=== PATIENT | male | born 1995 | race Caucasian/White ===

== ENCOUNTER 2020-08-27 00:23 | Emergency (ER) | payer BC, SELFPAY ==
[2020-08-27 00:24] VITALS: BP 139/76; PULSE 81; RESP 18; TEMP 36.6; O2SAT 100; BMI 23.9
[2020-08-27 00:45] LABS: Absolute Neutrophil Count 4.9 X10^3/uL (2.0-7.7); Basophil# 0.03 X10^3/uL; Basophil% 0.3 % (0-1); Eosinophil# 0.63 X10^3/uL; Eosinophils% 6.1 % (0-5); Hematocrit 42.2 % (40-54); Hemoglobin 14.1 g/dL (13.0-16.5); Lymphocyte % 39.8 % (19-41); Mean Corp Hgb Conc 33.4 g/dL (32-36); Mean Corpuscular Hgb 30.3 pg (27.0-32.0); Mean Corpuscular Volume 90.6 fL (80-94); Mean Platelet Vol. 9.3 fl (6.2-12.0); Monocyte# 0.67 X10^3/uL; Monocyte% 6.5 % (0-10); NRBC Flagged by Analyzer 0 % (0-5); Neutrophil # 4.85 X10^3/uL (2.7-7.7); Neutrophil % 47.1 % (47-70); Platelet Count 223 K/mm3 (150-450); RBC Distribution Width CV 12.9 % (11.6-14.6); RBC Distribution Width SD 42.5 fl (35.1-43.9); Red Blood Count 4.66 M/mm3 (4.6-6.2); White Blood Count 10.3 K/mm3 (4.4-11.0)
[2020-08-27 00:48] LABS: Mucous, Urine 0 SEEN /hpf (<or=2+); Squamous Epithelial Cells - UA 0 SEEN /hpf (0-5)
[2020-08-27 01:02] LABS: Anion Gap 5 (5-15); BUN 14 mg/dL (7-18); BUN/Creat Ratio 10.3 RATIO (10-20); Calcium,Total 8.9 mg/dL (8.5-10.1); Chloride 108 mmol/L (98-107); Creatinine, Serum 1.36 mg/dL (0.70-1.30); EST Glomerular Filtration Rate 67 mL/min (>60); Est Glom Filt Rate - Afr Amer 82 mL/min (>60); Estimated Creatinine Clearance 88.43 ml/min; Glucose 113 mg/dL (74-106); Potassium 3.9 mmol/L (3.5-5.1); Sodium Level 143 mmol/L (136-145)
[2020-08-27 01:16] LABS: Color, Urine Red (Yellow); Glucose, Dipstick Normal (Normal); Ketone-Dipstick 5 mg/dl (Negative); Leukocyte Esterase-Dipstick 25 /ul (Negative); Nitrite-Dipstick Negative (Negative); Occult Blood-Urine 250 /ul (Negative); Protein-Dipstick 100 mg/dl (Negative); Specific Gravity, Urine 1.025 (1.002-1.030); Urine Bilirubin Dipstick Negative (Negative); Urine Clarity Cloudy (Clear); Urine Urobilinogen Normal (Normal)
--- NOTE | 2020-08-27 01:18 | CT_ITS ---
STUDY: CT ABDOMEN AND PELVIS WITHOUT CONTRAST REASON FOR EXAM: Male, 24 years old. Left flank pain RADIATION DOSAGE (If Supplied By Facility): CTDIvol = ( 6.31 ) mGy, DLP = ( 309.19 ) mGycm TECHNIQUE: Transaxial images were obtained from the dome of the diaphragm to the symphysis pubis without oral contrast, and without intravenous contrast. Sagittal and coronal images were reconstructed. Individualized dose optimization techniques were used for this CT. COMPARISON: None. FINDINGS: The visualized lung bases are unremarkable. The visualized portions of the heart are within normal limits. Normal liver. Normal gallbladder and extrahepatic biliary system. Normal spleen. Normal pancreas. Normal bilateral adrenal glands. Punctate stones within the right kidney largest measuring 1.6 mm. Otherwise normal right kidney. Mild left hydronephrosis. Tiny punctate stones largest measuring 1.2 mm within the left kidney. There is mild left hydronephrosis and hydroureter due to a distal left ureteral stone measuring 3 mm. Normal visualized stomach. Normal small intestine. Normal colon. The appendix is visualized and appears normal. Normal abdominal aorta. Normal inferior vena cava. Normal retroperitoneum. Normal urinary bladder. Normal abdominal wall. Normal osseous structures. CT/Abdomen/Pelvis without Cont IMPRESSION: Mild left hydronephrosis due to a 3 mm stone in the distal left ureter, just above the UV junction. Nonspecific bilateral tiny punctate intrarenal stones as described. Electronically Signed: Leann Atkinson MD at 2:20 EDT , Service support ,
[2020-08-27 01:30] LABS: Bacteria 1+ /hpf (None Seen); Red Blood Cells-Urine > 100 SEEN /hpf (0-5); White Blood Cells 10-25 SEEN /hpf (0-5)
[2020-08-27] MEDS: 0.9% Normal Saline 1,000 ML 1000 ML IV (01:32)
[2020-08-27] MEDS: Ketorolac 30 MG/ML Syringe IV (01:32)
--- NOTE | 2020-08-27 03:06 | EDS_ITS ---
HPI HPI - GI History of Present Illness Chief Complaint: Abd Pain Informant: patient Abdominal Pain/Flank Pain Onset: Today Context: Gradual Onset Timing: Continuous Quality: Sharp Location: LLQ and Left Flank Worsened by: Movement Relieved by: Remaining Still Nausea/Vomiting/Emesis GI Symptom: Negative for Nausea and Vomiting Diarrhea/Melena/Hematochezia GI Symptom: Negative for Diarrhea, Melena and Hematochezia Associated Symptoms Associated Symptoms: Positive for Dysuria and Hematuria Narrative Narrative: Patient presents with left-sided abdominal pain that began tonight. Patient states the pain has gradually gotten worse throughout the day. Patient describes the pain as sharp. Patient states the pain is over the left flank and left lower quadrant. Patient admits to some mild dysuria and gross hematuria. Patient denies any nausea or vomiting. Patient denies any diarrhea, melena, or hematochezia. Patient states the pain is worse with movement and better when he is still. [facility] Medical History ADHD Home Medications dextroamphetamine-amphetamine [Adderall 20 mg Tablet] 20 mg PO DAILY 11/19/16 [History Last Taken Unknown] hydrocodone-acetaminophen 1 tab PO Q6H PRN PRN 3 Days #10 tablet 08/27/20 [Rx Last Taken Unknown] Allergy/AdvReac Type Severity Reaction Status Date / Time No Known Allergies Allergy Verified 08/27/20 00:26 Surgical History (Updated 08/27/20 @ 03:[address] Daniel Hernandez DO) S/P LASIK surgery of both eyes Social History Smoking Status: Current every day smoker tobacco type: cigarettes ROS ROS ED Constitutional Constitutional ED: Denies chills or fever(s) Eyes Eyes: Denies blurry vision or change in vision ENT ENT ED: Denies rhinorrhea or sore throat Cardiovascular Cardiovascular: Denies chest pain or palpitations Respiratory/Chest Respiratory/Chest: Denies cough or dyspnea Gastrointestinal Gastrointestinal: Reports abdominal pain; Denies nausea or vomiting Genitourinary Genitourinary ED: Reports dysuria and hematuria Musculoskeletal Musculoskeletal: Denies back pain or neck pain Integumentary Denies abscess or rash Neurologic Neurologic: Denies headache(s) or weakness Allergic/Immunologic Allergic/Immunologic ED: Denies mouth swelling or urticaria EXAM Physical Exam Const Vital Signs: 08/27/20 00:24 08/27/20 03:18 Temperature 97.8 F Temperature Source Oral Pulse Rate 81 Respiratory Rate 18 16 Blood Pressure 139/76 H Blood Pressure Mean 97 Pulse Ox 100 Oxygen Delivery Method Room Air Positive well nourished and well developed General Appearance ED: well developed HEENT normocephalic and atraumatic Neck supple and no JVD Resp normal respiratory effort and clear to auscultation bilaterally Cardio regular rate, regular rhythm and no murmurs Rate: regular rate Rhythm: regular rhythm GI non-tender and non-distended Auscultation: normoactive bowel sounds Palpation: soft Back/Spine no CVA tenderness Extremity normal to inspection General Extremety ED: Negative for edema or tenderness General Extremity: Negative for edema Neuro oriented x3, CN's II-XII intact bilaterally and no sensory deficits noted Sensorium / Orientation: alert Motor Exam: strength 5/5 throughout Skin Rashes: no rashes MDM MDM MDM Narrative Medical decision making narrative: Patient was given IV fluids and Toradol initially. CBC and basic metabolic profile were obtained and were essentially within normal limits. Urinalysis showed red cloudy urine with greater than [address] scan of the abdomen pelvis was obtained. There is mild left hydronephrosis due to a 3 mm calculus in the left distal ureter just above the UV junction. This was interpreted by the radiologist and reviewed by myself. Patient was feeling better on reevaluation. Patient was given a prescription for a short course of Wagner. Patient was instructed drink plenty of fluids. Patient was given a repeat dose of morphine prior to discharge. Patient was given referral to urology for follow-up care. Patient was also instructed to follow-up with his primary care physician in 5 to 7 days. Patient and family understood and were agreeable with the plan. All questions were answered. Lab Data Attestation: I reviewed the patient's lab results. Labs: Laboratory Results - last 24 hr 08/27/20 08/27/20 08/27/20 00:35 00:35 00:45 WBC 10.3 RBC 4.66 Hgb 14.1 Hct 42.2 MCV 90.6 MCH 30.3 MCHC 33.4 RDW Std Deviation 42.5 RDW Coeff of Brea 12.9 Plt Count 223 MPV 9.3 Immature Gran % (Auto) 0.200 Neut % (Auto) 47.1 Lymph % (Auto) 39.8 Barron % (Auto) 6.5 Eos % (Auto) 6.1 H Baso % (Auto) 0.3 Absolute Neuts (auto) 4.9 Absolute Lymphs (auto) 4.10 Nucleated RBC % 0 Sodium 143 Potassium 3.9 Chloride 108 H Carbon Dioxide 30.0 Anion Gap 5 BUN 14 Creatinine 1.36 H Estim Creat Clear Calc 88.43 Est GFR (MDRD) Af Amer 82 Est GFR (MDRD) Non-Af 67 BUN/Creatinine Ratio 10.3 Glucose 113 H Calcium 8.9 Urine Color Red Urine Clarity Cloudy Urine pH 6.0 Ur Specific [place] 1.025 Urine Protein 100 H Urine Glucose (UA) Normal Urine Ketones 5 H Urine Occult Blood 250 H Urine Nitrite Negative Urine Bilirubin Negative Urine Urobilinogen Normal Ur Leukocyte Esterase 25 H Urine RBC > 100 SEEN Urine WBC 10-25 SEEN Ur Squamous Epith Cells 0 SEEN Urine Bacteria 1+ Urine Mucus 0 SEEN Radiography Diagnostic Testing: Radiology Impression Abdomen/Pelvis CT 08/27/20 01:18 IMPRESSION: Mild left hydronephrosis due to a 3 mm stone in the distal left ureter, just above the UV junction. Nonspecific bilateral tiny punctate intrarenal stones as described. Electronically Signed: Leann Atkinson MD at 2:20 EDT , Service support , Discharge Plan Triage Chief Complaint: Abd Pain ED Provider: Daniel Hernandez Dx/Rx/DC Orders Clinical Impression: Calculus of distal left ureter Instructions: ED Kidney Stone w/ Colic Prescriptions: New hydrocodone-acetaminophen [hydrocodone-acetaminophen] 1 TABLET tablet 1 tab PO Q6H PRN PRN (Reason: Pain) 3 Days Qty: 10 RF: 0 No Action dextroamphetamine-amphetamine [Adderall] 20 MG tablet 20 mg PO DAILY RF: 0 Primary Care Provider: Bill Leon Chi Referrals: Misha Owens MD [STAFF PHYSICIAN] - 3-5 Days Bill Leon Chi, MD [Primary Care Provider] - 3-5 Days Disposition Disposition: Home, self care Discharge Date/Time: 08/27/20 03:19
[2020-08-27] MEDS: Morphine 4 MG/ML Syringe IV (03:17)
[2020-08-27 03:18] VITALS: RESP 16
== END 2020-08-27 03:19 | disposition home or self-care (01) ==
PROVIDERS: Emergency Provider Emergency Medicine; PCP Family Medicine Geriatric Medicine
DX: N13.2 Hydronephrosis with renal and ureteral calculous obstruction (principal); F90.9 Attention-deficit hyperactivity disorder, unspecified type; F17.210 Nicotine dependence, cigarettes, uncomplicated; Z79.899 Other long term (current) drug therapy
CPT/HCPCS: 74176; 80048; 81001; 85025; 96361; 96374; 96375; 99283; J7030; A4216

== ENCOUNTER 2022-04-14 20:36 | Emergency (ER) | payer BC, SELFPAY ==
[2022-04-14 20:37] VITALS: BP 133/82; PULSE 100; RESP 16; TEMP 37.2; O2SAT 98; BMI 26.6
[2022-04-14] MEDS: Diphth,Pertuss(Acell),Tet Vac 0.5 ML Vial IM (22:13)
--- NOTE | 2022-04-14 23:33 | EX.ED.UPPERE ---
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 Patient states he is able to control the bleeding. Patient denies any bony tenderness. He has not had any loss of function or loss of sensation. Tetanus immunization is unknown. Patient is right-hand dominant. [facility] Medical History ADHD Home Medications dextroamphetamine-amphetamine 20 mg tablet (Adderall) 20 mg PO BID 11/19/16 [History Last Taken Unknown] Allergy/AdvReac Type Severity Reaction Status Date / Time No Known Allergies Allergy Verified 08/27/20 00:26 Surgical History S/P LASIK surgery of both eyes Social History Smoking Status: Current every day smoker tobacco type: cigarettes ROS ROS ED Constitutional Constitutional ED: Denies chills or fever(s) Eyes Eyes: Denies change in vision or diplopia ENT ENT ED: Denies rhinorrhea or sore throat Cardiovascular Cardiovascular: Denies chest pain or palpitations Respiratory/Chest Respiratory/Chest: Denies cough or dyspnea Gastrointestinal Gastrointestinal: Denies abdominal pain or constipation Genitourinary Genitourinary ED: Denies dysuria or hematuria Musculoskeletal Musculoskeletal: Denies back pain or myalgias Integumentary Reports other Details: Laceration left wrist Neurologic Neurologic: Denies headache(s), paresthesias or weakness EXAM Physical Exam Const Vital Signs: 04/14/22 20:37 04/14/22 20:37 Temperature 98.9 F Temperature Source Oral Pulse Rate 100 Respiratory Rate 16 Blood Pressure 133/82 H Blood Pressure Mean 99 Pulse Ox 98 Oxygen Delivery Method Room Air Positive well nourished General Appearance ED: NAD HEENT Reports moist mucous membranes normocephalic and atraumatic Eyes PERRL and EOMs intact bilaterally Resp normal respiratory effort Cardio regular rate and regular rhythm Extremity Extremity Narrative: 4 cm laceration to the left volar wrist distally. This is ellipsoid in the horizontal lie. No active bleeding. No ligamentous injury or tendon. Bleeding well controlled. Left hand neurovascular intact prescription for all 5 fingers. Neuro oriented x3 and CN's II-XII intact bilaterally Sensorium / Orientation: alert Psych mental status grossly normal MDM MDM MDM Narrative Medical decision making narrative: Patient seen and evaluated for laceration to the left wrist. This is about 4 cm. Bleeding is well controlled. No major vascular injuries noted. No evidence of any ligament, tendon, bony involvement. I believe the patient needs x-rays. Tetanus was updated today. Patient's laceration was sutured with 4 simple interrupted 4-0 Ethilon sutures. Please see procedure note. Patient tolerated this well. His wound was dressed and he was placed in a wrist splint due to the location on the wrist that he does not inadvertently extend his wrist or flex his wrist and and tear his sutures. Patient counseled on wound care and follow-up. Return precautions discussed. Patient discharged home in stable condition. Impression: 1. 4.0 cm left wrist laceration 2. Tetanus immunization Lab Data Attestation: I reviewed the patient's lab results. Procedures Lacerations left wrist: Length: 1.57 in Depth: Skin Shape: Ellipsoid Prep: Sterile Conditions and Chlorhexadine Laceration repair: Irrigated and Lidocaine Irrigated (ml): 250 Number of Sutures/Grandy: 4 Suture Information: Ethilon, Simple and 4-0 Discharge Plan Triage Chief Complaint: Laceration ED Provider: Deepak Gamez Dx/Rx/DC Orders Instructions: ED Laceration Extremity Prescriptions: No Action dextroamphetamine-amphetamine [Adderall] 20 MG tablet 20 mg PO BID Primary Care Provider: Bill Leon Chi Referrals: Bill Leon Chi, MD [Primary Care Provider] - Disposition Disposition: Home, Self Care
== END 2022-04-14 23:43 | disposition home or self-care (01) ==
PROVIDERS: Emergency Provider Student in an Organized Health Care Education/Training Program; PCP Family Medicine Geriatric Medicine; Visit Provider Student in an Organized Health Care Education/Training Program
DX: S61.512A Laceration without foreign body of left wrist, initial encounter (principal); F17.210 Nicotine dependence, cigarettes, uncomplicated; Z23 Encounter for immunization; W26.8XXA Contact with other sharp object(s), not elsewhere classified, initial encounter
CPT/HCPCS: 12002; 90471; 90715; 99282

== ENCOUNTER → 2023-04-02 | Outpatient (CLI) | payer BC, SELFPAY ==
--- OUTSIDE RECORDS SUMMARY | 2023-04-02 15:57 | XMS RPT_ITS | CCD ---
Author Name Unknown Address [address] [place] [address] Organization [facility] Care Team Providers Care Director Of Provider Relations Name Role Phone MANUELA STEVENSON Unavailable Unavailable JUANY CARLISLE Unavailable Sonal Carlisle MD, Juany Carrizales Primary Care Provider ALIYAH AQUINO Referring Unavailab JUANY Aiken Primary Care Unavailable Juany Carlisle MD Primary Care Provider [phone] BEAU NORWOOD Referring Unavailable JUANY CARLISLE Primary Care Unavailable JUANY CARLISLE Primary Care Unavailable ALIYAH AQUINO Attending UnavailBEAU Bose Referring Unavailable BEAU NORWOOD Referring Unavailable JUANY CARLISLE Primary Care Unavailable JUANY CARLISLE Primary Care Unavailable JUANY CARLISLE Primary Care Unavailable BEAU NORWOOD Referring Unavailable JUANY CARLISLE Primary Care Unavailable JUANY CARLISLE Primary Care Unavailable ALIYAH AQUINO Referring Unavailab ALIYAH Cotto Attending Unavailab le Medications Completed/Discontinued Medications Medication Drug Class(es) Dates Sig (Normalized) Sig (Original) amphetamine aspartate 5 mg / amphetamine sulfate 5 mg / dextroamphetamine saccharate 5 mg / dextroamphetamine sulfate 5 mg oral tablet (6 sources) Central Nervous System Stimulant Start: 12-10-2021 take 1 tablet by mouth twice daily dextroamphetamin e-amphetamine (ADDERALL) 20 mg tablet Take 1 tablet by mouth twice daily. 0 12/10/2021 Active Problems Problem Classification Problem Date Documented Date Episodic/Chronic Disorders usually diagnosed in infancy, childhood, or adolescence (6 sources) Attention deficit hyperactivity disorder, predominantly inattentive type; Translations: [Other specified behavioral and emotional disorders with onset usually occurring in childhood and adolescence] Onset: 10-23-2014 03-03-2015 Chronic Fracture of upper limb (2 sources) Closed fracture of triquetral bone of wrist; Translations: [Displaced fracture of triquetrum [cuneiform] bone, right wrist, initial encounter for closed fracture] Episodic Other injuries and conditions due to external causes (1 source) Injury of left ankle; Translations: [Unspecified injury of left ankle, initial encounter] Episodic Other non-traumatic joint disorders (1 source) Pain of right wrist; Translations: [Pain in right wrist] Episodic Residual codes; unclassified (1 source) Pain, unspecified; Translations: [Pain] Onset: 01-22-2022 Episodic Results Test Name Value Interpretation Reference Range Facil ity Vital Signs Date Time Vital Sign Value Performing Clinician Simran hendricks 05-10-2022 14:32-0500 Body temperature 97.9 [degF] Beau Norwood APRN.STRIPPING AND BOOKING MACHINE OPERATOR Work Phone: [facility] 05-10-2022 14:32-0500 Body weight 86.64 kg Beau Norwood APRN.STRIPPING AND BOOKING MACHINE OPERATOR Work Phone: [facility] 05-10-2022 14:32-0500 Diastolic blood pressure 72 mm[Hg] Beau Norwood APRN.STRIPPING AND BOOKING MACHINE OPERATOR Work Phone: [facility] 05-10-2022 14:32-0500 Heart rate 104 /min Beau Norwood APRN.STRIPPING AND BOOKING MACHINE OPERATOR Work Phone: [facility] 05-10-2022 14:32-0500 Respiratory rate 16 /min Beau Norwood APRN.STRIPPING AND BOOKING MACHINE OPERATOR Work Phone: [facility] 05-10-2022 14:32-0500 SaO2% (BldA) [Mass fraction] 98 % Beau Norwood APRN.STRIPPING AND BOOKING MACHINE OPERATOR Work Phone: [facility] 05-10-2022 14:32-0500 Systolic blood pressure 120 mm[Hg] Beau Norwood APRN.STRIPPING AND BOOKING MACHINE OPERATOR Work Phone: [facility] Encounters Encounter Date Encounter Type Care Provider Facility Start: 05-12-2022 End: 02-20-2023 ambulatory JUANY CARLISLE Facility:[facility] Start: 05-12-2022 Telephone encounter Beau kumar APRN.CNP Work Phone: [facility] Procedures Date Procedure Procedure Detail Performing Clinician Start: 05-11-2022 Radex ankle complete minimum 3 views Beau Norwood APRN.CNP Work Phone: Plan of Treatment Date Care Activity Detail Author Start: 11-19-2026 Urine microalbumin profile DTAP,TDAP,TD (4 - Td or Tdap) [facility] Start: 03-23-2022 DEPRESSION ASSESSMENT DEPRESSION ASSESSMENT [facility] Start: 11-21-2021 Influenza vaccination INFLUENZA (#1) [facility] Start: 03-23-2021 DEPRESSION ASSESSMENT DEPRESSION ASSESSMENT [facility] Start: 2012 HEPATITIS C SCREENING HEPATITIS C SCREENING [facility] Start: 2012 HIV SCREENING HIV SCREENING [facility] Start: 2000 PNEUMOCOCCAL (1 - PCV) PNEUMOCOCCAL (1 - PCV) [facility] Start: 05-11-1995 COVID-19 VACCINE (#1) COVID-19 VACCINE (#1) [facility] XR ANKLE GENERAL 3V AP/LAT/OBL LEFT XR ANKLE GENERAL 3V AP/LAT/OBL LEFT Radiology STAT Ankle injuries, left, initial encounter Ordered: 05/10/2022 [facility] Work Phone: Immunizations Immunization Date Immunization Notes Care Provider Jose Enrique levy 11-19-2016 tetanus toxoid, redu armando diphtheria toxoid, and acellular pertussis vaccine, adsorbed Aliyah Aquino DO Work Phone: [facility] 10-23-2014 meningococcal polysaccharide (groups A, C, Y and W-135) diphtheria toxoid conjugate vaccine (MCV4P) Aliyah Aquino DO Work Phone: [facility] 01-04-2009 influenza virus vacc ine, unspecified formulation Aliyah Aquino DO Work Phone: [facility] 12-04-2007 influenza virus vacc ine, live, attenuated, for intranasal use Aliyah Aquino DO Work Phone: [facility] Work Phone: 01-27-2007 influenza virus vacc ine, unspecified formulation Aliyah Aquino DO Work Phone: [facility] Work Phone: 12-03-2006 hepatitis B vaccine, pediatric or pediatric/adolescent dosage Aliyah Aquino DO Work Phone: [facility] Work Phone: 12-03-2006 Meningococcal, MCV4, unspecified conjugate formulation(groups A, C, Y and W-135) Aliyah Aquino DO Work Phone: [facility] Work Phone: 08-13-2006 tetanus toxoid, redu armando diphtheria toxoid, and acellular pertussis vaccine, adsorbed Aliyahlucille Aquino DO Work Phone: [facility] Work Phone: 01-21-2006 influenza virus vacc ine, live, attenuated, for intranasal use Aliyah Marydemetrio DO Work Phone: [facility] Work Phone: 01-28-2005 influenza virus vacc ine, unspecified formulation Aliyah Aquino DO Work Phone: [facility] Work Phone: 02-06-2004 influenza virus vacc ine, unspecified formulation Aliyah Aquino DO Work Phone: [facility] Work Phone: 01-23-2003 influenza virus vacc ine, unspecified formulation Aliyah Miles DO Work Phone: [facility] Work Phone: 02-22-2002 influenza virus vacc ine, unspecified formulation Aliyah Kulkarninathan DO Work Phone: [facility] Work Phone: 08-06-2001 Chicken Pox (disease) Aliyah harrison DO Work Phone: [facility] Work Phone: 02-10-2001 influenza virus vacc ine, unspecified formulation Aliyah Marydemetrio DO Work Phone: [facility] Work Phone: 09-21-2000 diphtheria, tetanus toxoids and acellular pertussis vaccine Aliyah Aquino DO Work Phone: [facility] Work Phone: 09-21-2000 measles, mumps and rubella virus vaccine Aliyahlucille Aquino DO Work Phone: [facility] Work Phone: 09-21-2000 poliovirus vaccine, inactivated Aliyah Aquino DO Work Phone: [facility] Work Phone: 02-25-2000 influenza virus vacc ine, unspecified formulation Aliyah Kulkarninathan DO Work Phone: [facility] Work Phone: 02-06-1999 influenza virus vacc ine, unspecified formulation Aliyahlucille Kulkarninathan DO Work Phone: [facility] Work Phone: 01-02-1999 influenza virus vacc ine, unspecified formulation Aliyah Aquino DO Work Phone: [facility] Work Phone: 02-09-1996 Tetramune Aliyah Aquino DO Work Phone: [facility] Work Phone: 11-25-1995 measles, mumps and rubella virus vaccine Aliyah Aquino DO Work Phone: [facility] Work Phone: 06-02-1995 hepatitis B vaccine, pediatric or pediatric/adolescent dosage Aliyah Kulkarninathan DO Work Phone: [facility] Work Phone: 06-02-1995 Tetramune Aliyah Kulkarninathan DO Work Phone: [facility] Work Phone: 06-02-1995 trivalent poliovirus vaccine, live, oral Aliyah Marydemetrio DO Work Phone: [facility] Work Phone: 03-13-1995 Tetramune Aliyah Chicorelli DO Work Phone: [facility] Work Phone: 03-13-1995 trivalent poliovirus vaccine, live, oral Aliyah Chicorelli DO Work Phone: [facility] Work Phone: 01-12-1995 Tetramune Aliyah Chicorelli DO Work Phone: [facility] Work Phone: 01-12-1995 trivalent poliovirus vaccine, live, oral Aliyah Chicorelli DO Work Phone: [facility] Work Phone: 1994 hepatitis B vaccine, pediatric or pediatric/adolescent dosage Aliyah Chicorelli DO Work Phone: [facility] Work Phone: 1994 hepatitis B vaccine, pediatric or pediatric/adolescent dosage Aliyah Chicorelli DO Work Phone: [facility] Work Phone: Payers Date Payer Category Payer Unknown [id number] 2016 Unknown [id number] 2016 Unknown [id number] Social History Date Type Detail Facility Start: 12[facility]23[facility]2021 [facility] tobacco daily [facility] History of tobacco use Cigarette Smoker [facility] Start: 12-23-2021 Cigarettes smoked current (pack per day) - Reported 0.[address] [facility] Start: 12-23-2021 Tobacco use and exposure Smokeless tobacco non-user [facility] Start: 01-02-2022 End: 05-10-2022 Alcohol intake Current non-drinker of alcohol (finding) [facility] Start: 12-23-2021 Tobacco Comment trying to quit [facility] Start: 1994 Sex Assigned At Not on file [facility] Start: 12-23-2021 End: 01-22-2022 Exposure to SARS-CoV-2 (event) Not sure [facility] Work Phone: Clinical Notes 11-29-2008 to 05-12-2022 Telephone Encounter - Beau Norwood APRN.CNP - 05/12/2022 5:34 PM ESTBeau Norwood APRN.CNP - 05/10/2022 2:54 PM ESTTelephone Encounter - Lolly Walls [facility] - 01/09/2022 3:57 PM EDT Note Date & Type Note Facility 05-12-2022 Note HNO ID: [id number] Author: RT Mihai(R) Service: ? Author Type: Neurophysiologist Type: Progress Notes Filed: 05/12/2022 4:11 PM Note Text: Radiology Service Progress Note PATIENT NAME: Stephon Liu DATE OF SERVICE: May 12, 2022 TIME: 3:56 PM PATIENT IDENTITY VERIFICATION COMPLETED USING TWO (2) IDENTIFIERS: Name and Date of confirmed by patient verbally. FALL SCREENING: Has the patient had 2 falls in the last year or 1 fall with injury or currently using an Ambulatory Assistive Device (Walker, Cane, Wheelchair, Crutches, etc.)? No PATIENT GENDER DATA: Male PATIENT RELEVANT IMPLANT DATA REVIEWED: Yes RADIOLOGY DEPARTMENT: General X-ray: Exam(s) Completed: Lower Extremity X-Ray(s): Ankle, Left PERIPHERAL IV DATA: Not applicable SIGNED BY: RT Mihai(R) May 12, 2022 3:56 PM [facility] 05-12-2022 Miscellaneous Notes Notified of negative xray, tx as sprain. F/u if s/s persist 10 days with pcpp or ortho. documented in this encounter [facility] 05-10-2022 Note HNO ID: [id number] Author: Beau Norwood APRN.CNP Service: ? Author Type: Nurse Practitioner Type: Progress Notes Filed: 05/10/2022 2:57 PM Note Text: Subjective HPI HPI Stephon Liu is a 26 year old male who presents today for CC of left ankle injury while wrestling today. Has tried otc medication withy relief. Symptoms are worsened by rom of ankle. Denies history of surgery or injury to left ankle. Denies numbness and tingling of left foot. .Patient presents with: Ankle Injury: left PAST MEDICAL HISTORY Diagnosis Date Hepatic cyst 08/10/2013 [facility] - PAST MEDICAL HISTORY OF Color Vision - Normal PAST SURGICAL HISTORY Procedure Laterality Date CIRCUMCISION W/CLAMP/OTH DEV W/BLOCK 1994 ALLERGIES Patient has no known allergies. MEDICATIONS dextroamphetamine-amphetamine (ADDERALL) 20 mg tablet Take 1 tablet by mouth twice daily. FAMILY HISTORY Problem Relation Age of Onset Heart Mother Maternal side - Heart problems Cancer Father Paternal side Social History Tobacco Use Smoking status: Every Day Packs/day: 0.25 Types: Cigarettes Smokeless tobacco: Never Tobacco comments: trying to quit Substance Use Topics Alcohol use: No Drug use: No ROS Objective Blood pressure 120/72, pulse 104, temperature 36.6 ?C (97.9 ?F), resp. rate 16, weight 86.6 kg (191 lb), SpO2 98 %. Physical Exam Constitutional: General: He is not in acute distress. Appearance: He is not toxic-appearing or diaphoretic. HENT: Head: Normocephalic and atraumatic. Cardiovascular: Pulses: Dorsalis pedis pulses are 2+ on the left side. Posterior tibial pulses are 2+ on the left side. Pulmonary: Effort: Pulmonary effort is normal. No accessory muscle usage or respiratory distress. Musculoskeletal: Left ankle: Swelling present. No deformity, ecchymosis or lacerations. Tenderness present over the lateral malleolus. Decreased range of motion. Left Achilles Tendon: No tenderness or defects. East's test negative. Neurological: Mental Status: He is alert and oriented to person, place, and time. ASSESSMENT/PLAN: 1. Ankle injuries, left, initial encounter - ICD9: 959.7, ICD10: S99.912A No xray at time of exam Crutches and ankle splint supplied. Return for xray when available Pain relief discussed F/u for severe/worsening s/s. - XR ANKLE GENERAL 3V AP/LAT/OBL LEFT Beau Norwood APRN.STRIPPING AND BOOKING MACHINE OPERATOR [facility] 05-10-2022 History of Presen t illness Narrative Subjective HPI HPI Stephon Liu is a 26 year old male who presents today for CC of left ankle injury while wrestling today. Has tried otc medication withy relief. Symptoms are worsened by rom of ankle. Denies history of surgery or injury to left ankle. Denies numbness and tingling of left foot. .Patient presents with: Ankle Injury: left PAST MEDICAL HISTORY Diagnosis Date Hepatic cyst 08/10/2013 [facility] - PAST MEDICAL HISTORY OF Color Vision - Normal PAST SURGICAL HISTORY Procedure Laterality Date CIRCUMCISION W/CLAMP/OTH DEV W/BLOCK 1994 ALLERGIES Patient has no known allergies. MEDICATIONS dextroamphetamine-amphetamine (ADDERALL) 20 mg tablet Take 1 tablet by mouth twice daily. FAMILY HISTORY Problem Relation Age of Onset Heart Mother Maternal side - Heart problems Cancer Father Paternal side Social History Tobacco Use Smoking status: Every Day Packs/day: 0.25 Types: Cigarettes Smokeless tobacco: Never Tobacco comments: trying to quit Substance Use Topics Alcohol use: No Drug use: No ROS Objective Blood pressure 120/72, pulse 104, temperature 36.6 C (97.9 F), resp. rate 16, weight 86.6 kg (191 lb), SpO2 98 %. Physical Exam Constitutional: General: He is not in acute distress. Appearance: He is not toxic-appearing or diaphoretic. HENT: Head: Normocephalic and atraumatic. Cardiovascular: Pulses: Dorsalis pedis pulses are 2+ on the left side. Posterior tibial pulses are 2+ on the left side. Pulmonary: Effort: Pulmonary effort is normal. No accessory muscle usage or respiratory distress. Musculoskeletal: Left ankle: Swelling present. No deformity, ecchymosis or lacerations. Tenderness present over the lateral malleolus. Decreased range of motion. Left Achilles Tendon: No tenderness or defects. East's test negative. Neurological: Mental Status: He is alert and oriented to person, place, and time. ASSESSMENT/PLAN: 1. Ankle injuries, left, initial encounter - ICD9: 959.7, ICD10: S99.912A No xray at time of exam Crutches and ankle splint supplied. Return for xray when available Pain relief discussed F/u for severe/worsening s/s. - XR ANKLE GENERAL 3V AP/LAT/OBL LEFT Beau Norwood APRN.STRIPPING AND BOOKING MACHINE OPERATOR documented in this encounter [facility] 01-22-2022 Note HNO ID: [id number] Author: Aliyah Aquino, DO Service: ? Author Type: Physician Type: Progress Notes Filed: 01/28/2022 2:15 PM Note Text: Follow Up Visit Chief Complaint Stephon Liu is a 26 year old male who presents today for follow up office visit. Patient presents with: Right Wrist - Follow Up, Pain History of Present Illness PAIN EVALUATION 01/22/2022 1047 Pain Level: 0 6/7 at worst Pain Location: Wrist-Right Description: Aching;Dull;Throbbing Duration Amount of Time: 2 Duration Units: Months Frequency: Intermittent Intervention/Comfort measure: Reposition;Relaxation;Splinting HPI: Stephon Liu is a 26 year old male for a follow up visit right wrist pain. Patient states his right wrist is doing well. Complains of left elbow pain more so, but much better than in past. Presents in wrist brace and states pain is starting to radiate to forearm. Pain history is noted as above. Is there any overall improvement in your condition? No Any new injury, since being seen last: No REVIEW OF SYMPTOMS: Patient did not have, and does not currently have, any weight loss, malaise, fever, chills, headache, chest pain, chest pressure, palpitations, cough, shortness of breath, orthopnea, paroxsymal nocturnal dyspnea, nausea, vomiting, diarrhea, constipation, melena, hematochezia, urinary difficulties, prolonged bleeding, easily bruising, heat or cold intolerance, new onset joint pain or swelling, new onset extremity weakness or numbness, new onset auditory or visual disturbances, lightheadedness, dizziness, partial loss of consciousness or full loss of consciousness. Current Outpatient Medications Medication Sig dextroamphetamine-amphetamine (ADDERALL) 20 mg tablet Take 1 tablet by mouth twice daily. No current facility-administered medications for this visit. Physical Exam Vitals: There were no vitals taken for this visit. Psych: Pleasant, good affect and mood General Appearance: Well appearing, alert, in no acute distress, well-hydrated, well nourished.. Skin: Skin color, texture, turgor normal, no suspicious rashes or lesions. Peripheral Pulses: Normal. Neurologic: Gait normal. Reflexes normal and symmetric. Sensation grossly intact.. Lymph Nodes: No cervical lymphadenopathy, No supraclavicular lymphadenopathy, No axillary lymphadenopathy., and No inguinal lymphadenopathy.. Respiratory: No recent pulmonary infection, hemoptysis, chronic cough, or shortness of breath at rest Rheumatologic: Joint deformities: right wrist pain Ortho Exam Assessment and Plan Radiographs: I have independently reviewed films and my findings are the same. and I have reviewed the images with the patient and family. Last XR Elbow - Impression Only XR ELBOW GENERAL 2V AP/LAT LEFT Exam End: 01/22/2022 11:35 AM (Final result) Impression: IMPRESSION: 1. Unremarkable left elbow 2. Stable right triquetral fracture Zinc Etcher: YUSRA Transcribe Date/Time: Jan 23 2022 7:17A... Impression: Encounter Diagnosis ICD-10-CM 1. Left elbow pain M25.522 XR ELBOW GENERAL 2V AP/LAT LEFT 2. Contusion of bone T14.8XXA Today, in detail, through a thorough evaluation, we discussed possible etiologies of pain and our plans for further diagnostic and therapeutic interventions. We discussed strategies for decreasing pain and improving strength, stability and motion. Patient's questions were answered in detailed. Patient verbalizes understanding and agrees with the treatment plan as discussed. Rigid right wrist brace Xr left elbow negative 4 weeks for repeat xrays and clinical exam Brace right wrist at all times while working, may remove when home for adls Patient aware and in agreement of plan. All questions answered. [facility] 01-22-2022 Note HNO ID: [id number] Author: RAÚL Anthony Service: Radiology Author Type: Technologist Type: Progress Notes Filed: 01/22/2022 11:35 AM Note Text: Radiology Service Progress Note PATIENT NAME: Stephon Liu DATE OF SERVICE: January 22, 2022 TIME: 11:35 AM PATIENT IDENTITY VERIFICATION COMPLETED USING TWO (2) IDENTIFIERS: Name and Date of confirmed by patient verbally. FALL SCREENING: Has the patient had 2 falls in the last year or 1 fall with injury or currently using an Ambulatory Assistive Device (Walker, Cane, Wheelchair, Crutches, etc.)? No PATIENT GENDER DATA: Male PATIENT RELEVANT IMPLANT DATA REVIEWED: Not Applicable RADIOLOGY DEPARTMENT: General X-ray: Exam(s) Completed: Upper Extremity X-Ray(s): Elbow, left PERIPHERAL IV DATA: Not applicable SIGNED BY: RAÚL Anthony January 22, 2022 11:35 AM [facility] 01-22-2022 Note HNO ID: [id number] Author: RAÚL Anthony Service: Radiology Author Type: Technologist Type: Progress Notes Filed: 01/22/2022 10:41 AM Note Text: Radiology Service Progress Note PATIENT NAME: Stephon Liu DATE OF SERVICE: January 22, 2022 TIME: 10:40 AM PATIENT IDENTITY VERIFICATION COMPLETED USING TWO (2) IDENTIFIERS: Name and Date of confirmed by patient verbally. FALL SCREENING: Has the patient had 2 falls in the last year or 1 fall with injury or currently using an Ambulatory Assistive Device (Walker, Cane, Wheelchair, Crutches, etc.)? No PATIENT GENDER DATA: Male PATIENT RELEVANT IMPLANT DATA REVIEWED: Not Applicable RADIOLOGY DEPARTMENT: General X-ray: Exam(s) Completed: Upper Extremity X-Ray(s): Wrist, right PERIPHERAL IV DATA: Not applicable SIGNED BY: RAÚL Anthony January 22, 2022 10:40 AM [facility] 01-09-2022 Miscellaneous Notes Please contact the patient for his follow up with Dr. Aquino in [place]. Disability forms are being held due to this. documented in this encounter [facility] 01-07-2022 Note HNO ID: [id number] Author: Aliyah Aquino, DO Service: ? Author Type: Physician Type: Progress Notes Filed: 01/07/2022 12:24 PM Note Text: Reason for Visit/Chief Complaint Stephon Liu is a 26 year old male who presents today for a new evaluation of following complaint: Patient presents with: Right Wrist - New, Pain, Fracture Left Elbow - New, Pain History of Present Illness: PAIN EVALUATION 01/02/2022 1142 Pain Level: 4 Pain Location: Ankle-Right Description: Sharp;Dull;Aching;Sore Duration Amount of Time: 1 Duration Units: Weeks Frequency: Intermittent Intervention/Comfort measure: Reposition;Relaxation;Splinting HPI: Stephon Liu is a 26 year old male presenting today with right wrist pain after fallin jovita scooter, no loc no head trauma no nv/ or other constitutional symptoms. Pain history is noted as above. Denies calf pain, numbness, tingling, fever, chills or other constitutional symptoms. Pain Pain Level: 4 Pain Location: wrist-Right Description: Sharp, Dull, Aching, Sore Duration Amount of Time: 1 Duration Units: Weeks Frequency: Intermittent Intervention/Comfort measure: Reposition, Relaxation, Splinting Pain Pain level: 8 Pain location:left elbow Description: Sharp, Dull, Aching, Sore Duration Amount of Time: 1 Duration Units: Weeks Frequency: Intermittent Intervention/Comfort measure: Reposition, Relaxation, Patient present to office following UC visit on 12/23/2021. Patient states he feel fell of a scooter. Patient was placed in brace. Patient hand carried XR. Patient states elbow hurts worse than wrist. Alicia Conroy LPN Previous Treatments: Ice: Yes Heat: No Brace: Yes, NSAIDs: Yes, Injections: No Surgeries: No Physical Therapy: No Review of Systems: Patient did not have, and does not currently have, any weight loss, malaise, fever, chills, headache, chest pain, chest pressure, palpitations, cough, shortness of breath, orthopnea, paroxsymal nocturnal dyspnea, nausea, vomiting, diarrhea, constipation, melena, hematochezia, urinary difficulties, prolonged bleeding, easily bruising, heat or cold intolerance, new onset joint pain or swelling, new onset extremity weakness or numbness, new onset auditory or visual disturbances, lightheadedness, dizziness, partial loss of consciousness or full loss of consciousness. Current Outpatient Medications on File Prior to Visit Medication Sig dextroamphetamine-amphetamine (ADDERALL) 20 mg tablet Take 1 tablet by mouth twice daily. No current facility-administered medications on file prior to visit. ALLERGIES No Known Allergies Physical Exam: Vitals: There were no vitals taken for this visit. Psych: Pleasant, good affect and mood General Appearance: Well appearing, alert, in no acute distress, well-hydrated, well nourished.. Skin: Skin color, texture, turgor normal, no suspicious rashes or lesions. Peripheral Pulses: Normal. Neurologic: Gait normal. Reflexes normal and symmetric. Sensation grossly intact.. Lymph Nodes: No cervical lymphadenopathy, No supraclavicular lymphadenopathy, No axillary lymphadenopathy., and No inguinal lymphadenopathy.. Respiratory: No recent pulmonary infection, hemoptysis, chronic cough, or shortness of breath at rest Rheumatologic: Joint deformities: right wrist pain Ortho Exam Imaging: Last XR Wrist - Impression Only No resulted procedures found. Avulsion/triquetral bone seen on xrays pat brought with them Assessment and Plan: Impression: Encounter Diagnosis ICD-10-CM 1. Right wrist pain M25.531 2. Closed chip fracture of triquetrum of right wrist, initial encounter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
[2023-04-02 16:27] LABS: Absolute Lymphocyte Count 3.73 X10^3/uL (0.83-4.51); Absolute Neutrophil Count 4.4 X10^3/uL (2.0-7.7); Basophil# 0.04 X10^3/uL; Basophil% 0.4 % (0-1); Eosinophil# 0.41 X10^3/uL; Eosinophils% 4.4 % (0-5); Hematocrit 45.2 % (40-54); Hemoglobin 15.7 g/dL (13.0-16.5); Lymphocyte # 3.73 X10^3/ul (0.83-4.51); Lymphocyte % 40.4 % (19-41); Mean Corp Hgb Conc 34.7 g/dL (32-36); Mean Corpuscular Hgb 30.7 pg (27.0-32.0); Mean Corpuscular Volume 88.5 fL (80-94); Mean Platelet Vol. 9.2 fl (6.2-12.0); Monocyte# 0.64 X10^3/uL; Monocyte% 6.9 % (0-10); NRBC Flagged by Analyzer 0 % (0-5); Neutrophil % 47.8 % (47-70); Platelet Count 245 K/mm3 (150-450); RBC Distribution Width CV 12.5 % (11.6-14.6); RBC Distribution Width SD 40.6 fl (35.1-43.9); Red Blood Count 5.11 M/mm3 (4.6-6.2); White Blood Count 9.2 K/mm3 (4.4-11.0)
[2023-04-02 17:08] LABS: ALB/GLOB Ratio 1.2 RATIO (0.9-2.4); AST(SGOT) 18 U/L (15-37); Alanine Aminotransfer ALT/SGPT 28 U/L (16-61); Albumin, Serum 4.1 g/dL (3.2-5.0); Alkaline Phosphatase 63 U/L (45-117); Anion Gap 4 (5-15); BUN 20 mg/dL (7-18); BUN/Creat Ratio 16.7 RATIO (10-20); Calcium,Total 9.6 mg/dL (8.5-10.1); Chloride 107 mmol/L (98-107); EST Glomerular Filtration Rate 76 mL/min (>60); Est Glom Filt Rate - Afr Amer 93 mL/min (>60); Globulin 3.3 g/dL (2.2-4.2); Glucose 52 mg/dL (74-106); Potassium 3.7 mmol/L (3.5-5.1); Protein, Total 7.4 g/dL (6.4-8.2); Sodium Level 140 mmol/L (136-145); Thyroid Stim Hormone (TSH) 2.74 uIU/mL (0.358-3.74)
== END | disposition home or self-care (01) ==
LOC: POLAB3 15:37
PROVIDERS: PCP Family Medicine Geriatric Medicine; Visit Provider Family Medicine Geriatric Medicine
DX: R53.83 Other fatigue (principal)
CPT/HCPCS: 36415; 80053; 84443; 85025

== ENCOUNTER → 2024-04-05 | Outpatient (CLI) | payer BC, SELFPAY ==
[2024-04-05 16:26] LABS: Absolute Lymphocyte Count 3.75 X10^3/uL (0.83-4.51); Absolute Neutrophil Count 6.4 X10^3/uL (2.0-7.7); Basophil# 0.05 X10^3/uL; Basophil% 0.4 % (0-1); Eosinophil# 0.48 X10^3/uL; Eosinophils% 4.3 % (0-5); Hematocrit 44.3 % (40-54); Hemoglobin 15.5 g/dL (13.0-16.5); Lymphocyte # 3.75 X10^3/ul (0.83-4.51); Lymphocyte % 33.3 % (19-41); Mean Corpuscular Hgb 31.6 pg (27.0-32.0); Mean Corpuscular Volume 90.2 fL (80-94); Monocyte# 0.55 X10^3/uL; Monocyte% 4.9 % (0-10); NRBC Flagged by Analyzer 0 % (0-5); Neutrophil # 6.41 X10^3/uL (2.7-7.7); Neutrophil % 56.8 % (47-70); Platelet Count 308 K/mm3 (150-450); RBC Distribution Width CV 13.2 % (11.6-14.6); RBC Distribution Width SD 43.8 fl (35.1-43.9); Red Blood Count 4.91 M/mm3 (4.6-6.2); White Blood Count 11.3 K/mm3 (4.4-11.0)
[2024-04-05 17:28] LABS: ALB/GLOB Ratio 1.3 RATIO (0.9-2.4); AST(SGOT) 28 U/L (15-37); Alanine Aminotransfer ALT/SGPT 33 U/L (16-61); Albumin, Serum 4.4 g/dL (3.2-5.0); Alkaline Phosphatase 72 U/L (45-117); Anion Gap 7 (5-15); BUN 11 mg/dL (7-18); BUN/Creat Ratio 9.3 RATIO (10-20); Calcium,Total 9.3 mg/dL (8.5-10.1); Chloride 106 mmol/L (98-107); Creatinine, Serum 1.18 mg/dL (0.70-1.30); EST Glomerular Filtration Rate 77 mL/min (>60); Est Glom Filt Rate - Afr Amer 94 mL/min (>60); Globulin 3.4 g/dL (2.2-4.2); Glucose 86 mg/dL (74-106); Potassium 3.6 mmol/L (3.5-5.1); Protein, Total 7.8 g/dL (6.4-8.2); Sodium Level 140 mmol/L (136-145)
== END | disposition home or self-care (01) ==
LOC: POLAB3 16:09
PROVIDERS: PCP Family Medicine Geriatric Medicine; Visit Provider Family Medicine Geriatric Medicine
DX: R53.83 Other fatigue (principal); R68.83 Chills (without fever)

== ENCOUNTER 2025-01-28 19:26 | Emergency (ER) | payer BC, SELFPAY ==
[2025-01-28 19:28] VITALS: BP 122/71; PULSE 94; RESP 18; TEMP 36.1; O2SAT 97
[2025-01-28 19:39] VITALS: BMI 25.7
--- NOTE | 2025-01-28 19:41 | CT_ITS ---
PROCEDURE: CT/Brain/Head without Contrast
--- NOTE | 2025-01-28 19:49 | EX.ED.DYSGE1 ---
HPI History of Present Illness Chief Complaint: Syncope Narrative Narrative: Chief complaint and HPI: 29-year-old male with past medical history of ADHD and previous history of syncope presents for evaluation of syncopal episode. Patient states he has not ate anything all day. Was at a Italian restaurant and shortly after taking 2 bites of food began feeling lightheaded, nauseous, and developed tunnel vision. States he knew his got a pass out. Lowered his head to the ground. Bystanders states it was approximately 1 minute. He then had nausea and vomiting. Patient denies any fever, chills, chest pain, shortness of breath, URI symptoms. Does admit to marijuana use today. Uses tobacco. Review of systems: See HPI Medications: As listed on the chart Allergies: As listed on the chart PFSH: Per chart Vital signs: As listed on the chart. Reviewed. Physical exam: Gen: A&O x3, NAD Head: Normocephalic, atraumatic Eyes: No sclera icterus, conjunctiva clear, pupils equal bilaterally ENT: Mildly dry mucous membranes Neck: Trachea midline CV: RRR, no murmurs Resp: Lungs CTA BL, no w/r/c Musc: Full ROM, no deformity Skin: Warm, dry Neuro: Alert, oriented, grossly intact, sensation intact Psych: Cooperative, appropriate mood and affect [facility] History ADHD Home Medications ?Medication ?Instructions ?Recorded ?Last Taken ?Type dextroamphetamine-amphetamine 20 20 mg PO BID 11/19/16 Unknown History mg tablet (Adderall) Allergy/AdvReac Type Severity Reaction Status Date / Time No Known Allergies Allergy Verified 01/28/25 19:28 Surgical History S/P LASIK surgery of both eyes Social History Smoking Status: Current every day smoker tobacco type: cigarettes EXAM Physical Exam Const Vital Signs: 01/28/25 19:28 01/28/25 19:40 01/28/25 20:27 Temperature 97 F L Temperature Source Temporal Pulse Rate 94 85 Respiratory Rate 18 20 H Respiratory Effort Normal Non-Labored Respiratory Pattern Normal Blood Pressure 122/71 H 126/74 H Blood Pressure Mean 88 91 Pulse Ox 97 100 Oxygen Delivery Method 01/28/25 21:00 Temperature Temperature Source Pulse Rate 74 Respiratory Rate 18 Respiratory Effort Respiratory Pattern Blood Pressure 120/62 Blood Pressure Mean 81 Pulse Ox 100 Oxygen Delivery Method Room Air MDM MDM MDM Narrative Medical decision making narrative: 29-year-old male with past medical history of ADHD and previous history of syncope presents for evaluation of syncopal episode. Patient states he has not ate anything all day. Was at a Italian restaurant and shortly after taking 2 bites of food began feeling lightheaded, nauseous, and developed tunnel vision. States he knew his got a pass out. Lowered his head to the ground. Bystanders states it was approximately 1 minute. He then had nausea and vomiting. Does admit to marijuana use. On presentation, vitals are stable. Patient in no acute distress. Differential diagnosis includes but is not limited to dehydration, electrolyte abnormality, hypoglycemia, arrhythmia, substance abuse, suspect less likely ACS, PE, intracranial/intrathoracic abnormality. NS bolus ordered. Laboratory workup ordered. [id number] glucose 112. CBC with mild leukocytosis of 14.2. No anemia. Platelets unremarkable. D-dimer unremarkable. CMP unremarkable except for mild renal insufficiency of 1.28. Patient may be mildly dehydrated. Magnesium mildly elevated at 2.4 which fits mild dehydration. Troponin unremarkable. UA negative for UTI. Urine drug screen positive for amphetamines likely from Adderall and THC. Alcohol level unremarkable. CT of the head is negative for any acute intracranial abnormality. At this point in time, no clear etiology for patient's syncopal episode. May be vasovagal. Recommend following up with primary care physician. Patient has remained asymptomatic here in the emergency department. Vitals are stable. Ambulated without difficulty. Patient stable to discharge home. Return precautions explained. He confirmed understanding of plan EKG: Interpreted by me/EM physician: EKG shows sinus arrhythmia. Heart rate 81. I do not have a previous EKG to compare to Diagnostic: Interpreted by me/EM physician: Chest x-ray pneumonia, effusion, cardiomegaly, pneumothorax. Radiology in agreement. Impression: 1. Syncope 2. Mild renal insufficiency likely secondary to mild dehydration Lab Data Labs: Laboratory Results - last 24 hr 01/28/25 01/28/25 01/28/25 19:20 19:46 19:52 WBC 14.2 H RBC 4.76 Hgb 15.3 Hct 42.3 MCV 88.9 MCH 32.1 H MCHC 36.2 H RDW Std Deviation 41.3 RDW Coeff of Brea 12.6 Plt Count 249 MPV 9.1 Immature Gran % (Auto) 0.300 Neut % (Auto) 41.1 L Lymph % (Auto) 46.7 H Faulk % (Auto) 7.0 Eos % (Auto) 4.4 Baso % (Auto) 0.5 Absolute Neuts (auto) 5.8 Absolute Lymphs (auto) 6.63 H Nucleated RBC % 0 Diff Path Review May foll Plt Morphology Comment ADEQ RBC Morphology NORM C+C D-Dimer Quant (PE/DVT) < 0.27 L Sodium 139 Potassium 3.5 Chloride 102 Carbon Dioxide 24.0 Anion Gap 12 BUN 13 Creatinine 1.28 H Estim Creat Clear Calc 89.88 Est GFR (MDRD) Non-Af 77 BUN/Creatinine Ratio 10.5 Glucose 121 H Calcium 9.4 Magnesium 2.4 H Total Bilirubin 0.61 AST 27 ALT 21 Alkaline Phosphatase 56 Troponin T High Sens 8 Total Protein 6.8 Albumin 4.6 Globulin 2.2 Albumin/Globulin Ratio 2.1 Urine Color Urine Clarity Urine pH Ur Specific [place] Urine Protein Urine Glucose (UA) Urine Ketones Urine Occult Blood Urine Nitrite Urine Bilirubin Urine Urobilinogen Ur Leukocyte Esterase Urine RBC Urine WBC Ur Squamous Epith Cells Amorphous Sediment Urine Bacteria Urine Mucus Urine Opiates Screen U Buprenorphine Qual Ur Oxycodone Screen Urine Methadone Screen Urine Fentanyl Screen Ur Barbiturates Screen Ur Phencyclidine Scrn Ur Amphetamines Screen U Benzodiazepines Scrn Urine Cocaine Screen U Cannabinoids Screen Ethyl Alcohol < 10.1 POC Glucose 112 H 01/28/25 20:58 WBC RBC Hgb Hct MCV MCH MCHC RDW Std Deviation RDW Coeff of Brea Plt Count MPV Immature Gran % (Auto) Neut % (Auto) Lymph % (Auto) Faulk % (Auto) Eos % (Auto) Baso % (Auto) Absolute Neuts (auto) Absolute Lymphs (auto) Nucleated RBC % Diff Path Review Plt Morphology Comment RBC Morphology D-Dimer Quant (PE/DVT) Sodium Potassium Chloride Carbon Dioxide Anion Gap BUN Creatinine Estim Creat Clear Calc Est GFR (MDRD) Non-Af BUN/Creatinine Ratio Glucose Calcium Magnesium Total Bilirubin AST ALT Alkaline Phosphatase Troponin T High Sens Total Protein Albumin Globulin Albumin/Globulin Ratio Urine Color Yellow Urine Clarity Clear Urine pH 7.0 Ur Specific [place] 1.010 Urine Protein 15 H Urine Glucose (UA) Normal Urine Ketones Negative Urine Occult Blood Negative Urine Nitrite Negative Urine Bilirubin Negative Urine Urobilinogen Normal Ur Leukocyte Esterase Negative Urine RBC 0 SEEN Urine WBC 0 SEEN Ur Squamous Epith Cells 0 SEEN Amorphous Sediment 3+ Urine Bacteria 1+ Urine Mucus 0 SEEN Urine Opiates Screen NEGATIVE U Buprenorphine Qual NEGATIVE Ur Oxycodone Screen NEGATIVE Urine Methadone Screen NEGATIVE Urine Fentanyl Screen NEGATIVE Ur Barbiturates Screen NEGATIVE Ur Phencyclidine Scrn NEGATIVE Ur Amphetamines Screen PRESUMPTIVE POSITIVE U Benzodiazepines Scrn NEGATIVE Urine Cocaine Screen NEGATIVE U Cannabinoids Screen PRESUMPTIVE POSITIVE Ethyl Alcohol POC Glucose Radiography Diagnostic Testing: Clinical Impression(s) from Imaging Studies Brain CT 01/28/25 19:41 IMPRESSION: Unremarkable head CT. Reading Location: [facility] Chest X-Ray 01/28/25 20:10 IMPRESSION: No acute cardiopulmonary disease. Reading Location: [facility] Discharge Plan Triage Chief Complaint: Syncope ED Provider: Francisco Santiago Dx/Rx/DC Orders Prescriptions: No Action dextroamphetamine-amphetamine [Adderall] 20 MG tablet 20 mg PO BID Primary Care Provider: Bill Leon Chi Referrals: Bill Leon Chi, MD [Primary Care Provider, Geriatrics] Print Language: Tamazight
[2025-01-28] MEDS: 0.9% Normal Saline (1000mL) 1,000 ML 1000 ML IV (19:52)
[2025-01-28 19:54] LABS: Mucous, Urine 0 SEEN /hpf (<or=2+); Red Blood Cells-Urine 0 SEEN /hpf (0-5); Squamous Epithelial Cells - UA 0 SEEN /hpf (0-5)
[2025-01-28 19:56] LABS: Hematocrit 42.3 % (40-54); Hemoglobin 15.3 g/dL (13.0-16.5); Immature Granulocytes Count 0.040 X10^3/uL (0.0-0.0); Mean Corp Hgb Conc 36.2 g/dL (32-36); Mean Corpuscular Volume 88.9 fL (80-94); Mean Platelet Vol. 9.1 fl (6.2-12.0); NRBC Flagged by Analyzer 0 % (0-5); POSITIVE DIFFERENTIAL YES; Platelet Count 249 K/mm3 (150-450); RBC Distribution Width CV 12.6 % (11.6-14.6); RBC Distribution Width SD 41.3 fl (35.1-43.9); Red Blood Count 4.76 M/mm3 (4.6-6.2); White Blood Count 14.2 K/mm3 (4.4-11.0)
[2025-01-28 20:05] LABS: Differential Indicated SCAN CRITERIA MET
[2025-01-28 20:08] LABS: Red Cell Morphology NORM C+C NORMAL (NORM C&C)
--- NOTE | 2025-01-28 20:10 | RAD_ITS ---
PROCEDURE: RAD/Chest PA and Lateral
[2025-01-28 20:14] LABS: D-Dimer Quantitative (DVT/PE) < 0.27 FEU/ug/m (0.27-0.49)
[2025-01-28 20:23] LABS: AST(SGOT) 27 U/L (<=37); Alanine Aminotransfer ALT/SGPT 21 U/L (<=46); Albumin, Serum 4.6 g/dL (3.5-5.0); Alkaline Phosphatase 56 U/L (40-129); Anion Gap 12 (5-15); BUN 13 mg/dL (4-19); BUN/Creat Ratio 10.5 RATIO (10-20); Calcium,Total 9.4 mg/dL (7.6-11.0); Carbon Dioxide 24.0 mmol/L (21.0-32.0); Chloride 102 mmol/L (98-108); Estimated Creatinine Clearance 89.88 ml/min (50-250); Globulin 2.2 g/dL (2.2-4.2); Glucose 121 mg/dL (70-99); Magnesium 2.4 mg/dL (1.5-2.2); Potassium 3.5 mmol/L (3.3-5.1)
[2025-01-28 20:27] VITALS: BP 126/74; PULSE 85; RESP 20; O2SAT 100
[2025-01-28 20:56] LABS: Troponin T High Sensitivity 8 ng/L (<=22)
[2025-01-28 20:58] LABS: Alcohol, Blood (Medical)-Serum < 10.1 mg/dL (<=10.0)
[2025-01-28 21:00] VITALS: BP 120/62; PULSE 74; RESP 18; O2SAT 100
[2025-01-28 21:06] LABS: Color, Urine Yellow (Yellow); Glucose, Dipstick Normal (Normal); Ketone-Dipstick Negative (Negative); Leukocyte Esterase-Dipstick Negative /ul (Negative); Nitrite-Dipstick Negative (Negative); Occult Blood-Urine Negative /ul (Negative); Protein-Dipstick 15 mg/dl (Negative); Specific Gravity, Urine 1.010 (1.002-1.030); Urine Bilirubin Dipstick Negative (Negative)
[2025-01-28 21:33] LABS: Barbiturate Urine NEGATIVE (< 200 ng/mL); Benzodiazepine Urine NEGATIVE (< 200 ng/mL); PCP Urine NEGATIVE (< 25 ng/mL); THC Urine PRESUMPTIVE POSITIVE (< 50 ng/mL)
[2025-01-28 21:57] VITALS: BP 135/85; PULSE 67; RESP 23; TEMP 36.4; O2SAT 100
== END 2025-01-28 21:59 | disposition home or self-care (01) ==
PROVIDERS: Emergency Provider Surgery; PCP Family Medicine Geriatric Medicine; Visit Provider Surgery
DX: R55 Syncope and collapse (principal); N28.9 Disorder of kidney and ureter, unspecified; E86.0 Dehydration; R11.2 Nausea with vomiting, unspecified; F12.90 Cannabis use, unspecified, uncomplicated; F17.210 Nicotine dependence, cigarettes, uncomplicated
CPT/HCPCS: 70450; 71046; 80053; 80307; 81001; 82077; 82962; 83735; 84484; 85025; 85379; 93005; 96360; 99285; A4216